=== PATIENT | male | born 1975 | race African-American/Black ===

== ENCOUNTER 2025-11-15 21:13 | Emergency (ER) | payer BC, OTHER ==
[2025-11-15] MEDS ORDERED: Cefdinir 300 MG CAP ONE (22:54)
[2025-11-15] MEDS ORDERED: Ibuprofen 200 MG TAB ONE (22:54)
== END 2025-11-15 23:03 | disposition home or self-care (01) ==
LOC: NAV ERS 21:13
DX: H66.91 Otitis media, unspecified, right ear (principal); F17.210 Nicotine dependence, cigarettes, uncomplicated
CPT/HCPCS: 99283